=== PATIENT | female | born 1990 | race Caucasian/White ===

== ENCOUNTER 2021-08-26 12:00 | Inpatient (IN) | payer OTHER ==
[2021-08-26] MEDS: DEXTROSE 5%-LACTATED RINGERS 1,000 ML IV SCH ×2 (12:30→17:21)
[2021-08-26 12:52] VITALS: BMI 27.6
[2021-08-26] MEDS ORDERED: PROMETHAZINE HCL 25 MG/1 ML VIAL IVPB ONE (14:00)
[2021-08-26] MEDS ORDERED: BUTORPHANOL TARTRATE 1 MG/ML VIAL IVPUSH PRN (14:00)
[2021-08-26 15:48] LABS: BASO % 0.3 % (0-2.0); EOS % 0.4 % (0-4.5); HEMATOCRIT 33.2 % (32.4-45.2); HEMOGLOBIN 11.5 GM/dL (10.7-15.3); LYMPH % 16.3 % (8-40); MCH 30.7 pg (25.7-33.7); MCHC 34.5 g/dl (32.0-36.0); MEAN CELL VOLUME 88.9 fl (80-96); MEAN PLT VOLUME 8.5 fl (7.5-11.1); PLATELET COUNT 251 10^3/uL (134-434); RBC 3.73 M/mm3 (3.60-5.2); RDW 14.1 % (11.6-15.6); WHITE BLOOD COUNT 9.3 K/mm3 (4.0-10.0)
[2021-08-26 15:58] LABS: INR 0.9 (0.83-1.09); PROTHROMBIN TIME (PATIENT) 10.5 SEC (9.7-13.0)
[2021-08-26 16:01] LABS: ACTIVATED PTT 25.1 SECONDS (25.2-36.5)
[2021-08-26 16:04] LABS: CALCIUM 8.4 mg/dL (8.5-10.1)
[2021-08-26 16:05] LABS: BLOOD UREA NITROGEN 7.6 mg/dL (7-18)
[2021-08-26 16:08] LABS: CREATININE 0.6 mg/dL (0.55-1.3)
[2021-08-26] MEDS ORDERED: OXYTOCIN 30 UNITS in 0.9% NS 30 UNIT/500 ML INFUS.BAG IVPB ONE (20:45)
[2021-08-26] MEDS ORDERED: OXYTOCIN 30 UNITS in 0.9% NS 30 UNIT/500 ML INFUS.BAG IVPB SCH (20:45)
[2021-08-27] MEDS ORDERED: OXYTOCIN 20 UNITS in 0.9% NS 20 UNIT/1,000 ML INFUS.BAG IV ONE (04:07)
[2021-08-27] MEDS ORDERED: WITCH HAZEL 50% (TUCKS) 40 PAD/JAR PAD TP PRN (04:32)
[2021-08-27] MEDS ORDERED: BISACODYL 10 MG SUPP.RECT RC PRN (04:32)
[2021-08-27] MEDS ORDERED: BENZOCAINE 20% 57 GM BOTTLE TP PRN (04:32)
[2021-08-27] MEDS ORDERED: BENZOCAINE 28 GM HEMORRHOIDAL OINTMENT TP PRN (04:32)
[2021-08-27] MEDS ORDERED: METHYLERGONOVINE MALEATE 0.2 MG/1 ML AMP IM PRN (04:32)
[2021-08-27] MEDS ORDERED: ACETAMINOPHEN 325 MG TABLET (FP) PO PRN (04:32)
[2021-08-27] MEDS ORDERED: OXYTOCIN 20 UNITS in 0.9% NS 20 UNIT/1,000 ML INFUS.BAG IV SCH (04:45)
[2021-08-27 05:10] LABS: CORD BASE EXCESS -4.1 mmol/L (0-2); CORD HCO3 21.4 mmHg (20-29); CORD PCO2 40.4 mmHg (30-78); CORD pH 7.341 (7.14-7.44)
[2021-08-27 05:12] LABS: CORD HCO3 21.5 mmHg (20-29); CORD PCO2 51.3 mmHg (30-78); CORD pH 7.241 (7.14-7.44)
[2021-08-27] MEDS: IBUPROFEN 600 MG TABLET (FP) PO PRN ×3 (08:41→22:25)
[2021-08-27] MEDS: FERROUS SO4 325 MG TABLET (FP) PO SCH ×2 (11:59→22:25)
[2021-08-27] MEDS: PRENATAL VITAMINS W/ FOLIC ACID TABLET (FP) PO SCH (11:59)
[2021-08-27] MEDS: DEXTROSE 5%-LACTATED RINGERS 1,000 ML IV SCH ×2 (14:54)
[2021-08-27 18:13] VITALS: TEMP 98.3
[2021-08-28 05:49] LABS: BASO % 0.4 % (0-2.0); EOS % 0.9 % (0-4.5); HEMATOCRIT 28.9 % (32.4-45.2); HEMOGLOBIN 10.1 GM/dL (10.7-15.3); LYMPH % 21.8 % (8-40); MCH 31.1 pg (25.7-33.7); MEAN CELL VOLUME 88.7 fl (80-96); MEAN PLT VOLUME 8.4 fl (7.5-11.1); MONO % 6.3 % (3.8-10.2); NEUT % 70.6 % (42.8-82.8); PLATELET COUNT 208 10^3/uL (134-434); RBC 3.26 M/mm3 (3.60-5.2); RDW 14.3 % (11.6-15.6); WHITE BLOOD COUNT 11.6 K/mm3 (4.0-10.0)
[2021-08-28] MEDS: PRENATAL VITAMINS W/ FOLIC ACID TABLET (FP) PO SCH (09:52)
[2021-08-28] MEDS: IBUPROFEN 600 MG TABLET (FP) PO PRN (09:52)
[2021-08-28] MEDS: FERROUS SO4 325 MG TABLET (FP) PO SCH (09:52)
[2021-08-28 10:34] VITALS: BP 103/68; PULSE 92
[2021-08-28] MEDS ORDERED: SENNOSIDES/DOCUSATE COMBO (SENNA PLUS) TABLET (UD) PO PRN (22:00)
== END 2021-08-28 17:25 | disposition home or self-care (01) | DRG 560 ==
LOC: JLDR 12:00 → J3W 08-27 06:16
PROVIDERS: ADMIT Obstetrics & Gynecology; ATTEND Obstetrics & Gynecology
PROC: 10E0XZZ Delivery of Products of Conception, External Approach (ICD-10-PCS; principal; 2021-08-27)
DX: O80 Encounter for full-term uncomplicated delivery (principal); Z3A.39 39 weeks gestation of pregnancy; Z37.0 Single live birth
CPT/HCPCS: 36415; 36600; 59409; 80048; 82803; 85025; 85610; 85730; 86780; 86850; 86900; 86901; C9803; U0003; U0005

== ENCOUNTER 2023-02-04 10:25 | Inpatient (IN) | payer OTHER ==
[2023-02-04] MEDS ORDERED: AMPICILLIN SODIUM 2 GM VIAL ONE (11:22)
[2023-02-04] MEDS ORDERED: SODIUM CHLORIDE 100 ML IVPB ONE (11:22)
[2023-02-04] MEDS ORDERED: OXYTOCIN 20 UNITS in 0.9% NS 20 UNIT/1,000 ML INFUS.BAG IV ONE ×2 (12:18→15:23)
[2023-02-04] MEDS ORDERED: ELECTROLYTE-148 SOLN 1,000 ML IV SCH (12:30)
[2023-02-04 12:31] LABS: BASO % 0.4 % (0-2.0); EOS % 0.2 % (0-4.5); HEMATOCRIT 28.5 % (32.4-45.2); HEMOGLOBIN 10.3 GM/dL (10.7-15.3); LYMPH % 10.2 % (8-40); MCH 31.3 pg (25.7-33.7); MCHC 36.2 g/dl (32.0-36.0); MEAN CELL VOLUME 86.4 fl (80-96); MEAN PLT VOLUME 9.1 fl (7.5-11.1); MONO % 4.9 % (3.8-10.2); NEUT % 84.3 % (42.8-82.8); PLATELET COUNT 162 10^3/uL (134-434); RDW 13.9 % (11.6-15.6); WHITE BLOOD COUNT 12.2 K/mm3 (4.0-10.0)
[2023-02-04] MEDS ORDERED: oxyCODONE HCL 5 MG TABLET PO PRN (12:34)
[2023-02-04] MEDS ORDERED: BISACODYL 10 MG SUPP.RECT RC PRN ×2 (12:34→12:41)
[2023-02-04] MEDS ORDERED: BENZOCAINE 28 GM HEMORRHOIDAL OINTMENT TP PRN ×2 (12:34→12:41)
[2023-02-04] MEDS ORDERED: IBUPROFEN 600 MG TABLET (FP) PO PRN (12:34)
[2023-02-04] MEDS ORDERED: METHYLERGONOVINE MALEATE 0.2 MG/1 ML AMP IM PRN ×2 (12:34→12:41)
[2023-02-04] MEDS ORDERED: WITCH HAZEL 50% (TUCKS) 40 PAD/JAR PAD TP PRN ×2 (12:34→12:41)
[2023-02-04] MEDS ORDERED: ACETAMINOPHEN 325 MG TABLET (FP) PO PRN ×2 (12:34→12:41)
[2023-02-04] MEDS ORDERED: BENZOCAINE 20% 57 GM BOTTLE TP PRN ×2 (12:34→12:41)
[2023-02-04 12:36] LABS: INR 0.96 (0.83-1.09); PROTHROMBIN TIME (PATIENT) 11.1 SEC (9.7-13.0)
[2023-02-04 12:38] LABS: ACTIVATED PTT 28.2 SECONDS (25.2-36.5)
[2023-02-04 12:44] LABS: CORD BASE EXCESS -10.3 mmol/L (0-2); CORD HCO3 20.4 mmHg (20-29); CORD pH 7.115 (7.14-7.44)
[2023-02-04] MEDS ORDERED: OXYTOCIN 20 UNITS in 0.9% NS 20 UNIT/1,000 ML INFUS.BAG IV SCH ×2 (12:45)
[2023-02-04 12:48] LABS: CALCIUM 8.2 mg/dL (8.5-10.1); POTASSIUM 3.8 mmol/L (3.5-5.1)
[2023-02-04 12:50] LABS: CORD BASE EXCESS -6.4 mmol/L (0-2); CORD HCO3 21.1 mmHg (20-29); CORD PCO2 49.2 mmHg (30-78); CORD pH 7.25 (7.14-7.44)
[2023-02-04 12:51] LABS: BLOOD UREA NITROGEN 12.5 mg/dL (7-18)
[2023-02-04 12:53] LABS: CREATININE 0.6 mg/dL (0.55-1.3)
[2023-02-04 13:21] VITALS: BMI 31.1
[2023-02-04] MEDS ORDERED: AMPICILLIN - 2 GM in SODIUM CHLORIDE 100 ML IVPB ONE (13:22)
[2023-02-04] MEDS: IBUPROFEN 600 MG TABLET (FP) PO PRN (16:38)
[2023-02-04] MEDS: FERROUS SO4 325 MG TABLET (FP) PO SCH (16:39)
[2023-02-05] MEDS: IBUPROFEN 600 MG TABLET (FP) PO PRN ×2 (07:52→17:48)
[2023-02-05] MEDS: FERROUS SO4 325 MG TABLET (FP) PO SCH ×3 (07:52→17:48)
[2023-02-05 08:41] LABS: BASO % 0.3 % (0-2.0); EOS % 0.3 % (0-4.5); HEMATOCRIT 25.1 % (32.4-45.2); HEMOGLOBIN 8.8 GM/dL (10.7-15.3); LYMPH % 22.9 % (8-40); MCH 30.5 pg (25.7-33.7); MCHC 35.3 g/dl (32.0-36.0); MEAN CELL VOLUME 86.5 fl (80-96); MEAN PLT VOLUME 9.4 fl (7.5-11.1); MONO % 5.3 % (3.8-10.2); NEUT % 71.2 % (42.8-82.8); PLATELET COUNT 143 10^3/uL (134-434); WHITE BLOOD COUNT 11.1 K/mm3 (4.0-10.0)
[2023-02-05] MEDS ORDERED: FLU VACC QS2022-23(6MOS UP)/PF 60 MCG/0.5 ML SYRINGE IM ONE (10:00)
[2023-02-05] MEDS: PRENATAL VITAMINS W/ FOLIC ACID TABLET (FP) PO SCH (10:31)
[2023-02-05 21:47] VITALS: TEMP 98.1
[2023-02-05] MEDS ORDERED: SENNOSIDES/DOCUSATE COMBO (SENNA PLUS) TABLET (UD) PO PRN ×2 (22:00)
[2023-02-06] MEDS: FERROUS SO4 325 MG TABLET (FP) PO SCH ×3 (07:58→17:06)
[2023-02-06 08:06] VITALS: BP 114/72; PULSE 70; RESP 16
[2023-02-06] MEDS: PRENATAL VITAMINS W/ FOLIC ACID TABLET (FP) PO SCH (09:45)
== END 2023-02-06 17:25 | disposition home or self-care (01) | DRG 560 ==
LOC: JDEL 10:25 → JLDR 11:00 → J3W 15:30
PROVIDERS: ADMIT Obstetrics & Gynecology; ATTEND Obstetrics & Gynecology
PROC: 10E0XZZ Delivery of Products of Conception, External Approach (ICD-10-PCS; principal; 2023-02-04)
DX: O99.824 Streptococcus B carrier state complicating childbirth (principal); Z37.0 Single live birth; Z3A.37 37 weeks gestation of pregnancy
CPT/HCPCS: 36415; 36600; 59409; 80048; 82803; 85025; 85610; 85730; 86780; 86850; 86900; 86901; 88307-TC; C9803-CS; G0008; Q2036; U0003; U0005